=== PATIENT | female | born 1945 | race Caucasian/White ===

== ENCOUNTER 2016-09-05 12:04 | Emergency (ER) | payer OTHER, BC ==
[2016-09-05 12:08] VITALS: BP 143/71; PULSE 81; TEMP 98.6; BMI 22.2
[2016-09-05] MEDS ORDERED: IBUPROFEN 600 MG TABLET (FP) PO ONE ×2 (13:06→13:11)
--- NOTE | 2016-09-05 13:19 | PDOC ---
History of Present Illness - General Chief Complaint: Injury Stated Complaint: PAIN Time Seen by Provider: 09/05/16 12:40 History Source: Patient Exam Limitations: No Limitations - History of Present Illness Initial Comments: 09/05/16 13:07 70-year-old female presents to the emergency room with complaints of status post mechanical fall. Patient states has walked was walking in the hallway of her building that had just been mopped when she had slipped causing her to land on her left side. Patient states had no LOC and did not hit her head along with no initial pain. Patient states by the morning and later on that day symptoms have worsened causing her difficulty with movement of her left arm and pain with ambulation. Patient denied headache, dizziness, nausea, abdominal pain, weakness, or swelling to the affected areas. Patient states did not take any pain for discomfort and decided come to the ER. Patient states had a tetanus approximately 1 month ago secondary to injury. Occurred: reports: other (2 days ago) Severity: reports: mild Pain Location: reports: back Modifying Factors: improves with: None Loss of Consciousness: no loss of consciousness Associated Symptoms (Fall): denies symptoms Past History - Travel Traveled outside of the country in the last 30 days: No Close contact w/someone who was outside of country & ill: No - Past Medical History Allergies/Adverse Reactions: Allergies Allergy/AdvReac Type Severity Reaction Status Date / Time No Known Allergies Allergy Verified 09/05/16 12:05 Home Medications: Ambulatory Orders Hydrochlorothiazide [Hctz -] 25 mg PO DAILY 10/18/15 Lisinopril [Prinivil] 20 mg PO DAILY 10/18/15 Rosuvastatin Calcium [Crestor] 5 mg PO HS 10/18/15 Diabetes: Yes (borderline) HTN: Yes Hypercholesterolemia: Yes - Psycho/Social/Smoking Cessation Hx Anxiety: No Suicidal Ideation: No Smoking History: Never smoked Have you smoked in the past 12 months: No Information on smoking cessation initiated: No Hx Alcohol Use: No Drug/Substance Use Hx: No Substance Use Type: None Patient Lives Alone: No Review of Systems - Review of Systems Able to Perform ROS?: Yes Constitutional: No: Symptoms Reported HEENTM: No: Symptoms Reported Respiratory: No: Symptoms reported Cardiac (ROS): No: Symptoms Reported ABD/GI: No: Symptoms Reported : No: Symptoms Reported Musculoskeletal: Yes: Joint Pain (left shoulder and and left hip). No: Joint Swelling, Muscle Pain, Muscle Weakness, Joint Stiffness Integumentary: No: Symptoms Reported Neurological: No: Symptoms reported Hematologic/Lymphatic: No: Symptoms Reported *Physical Exam - Vital Signs Last Vital Signs Temp Pulse Resp BP Pulse Ox 98.6 F 81 18 143/71 100 09/05/16 12:05 09/05/16 12:05 09/05/16 12:05 09/05/16 12:05 09/05/16 12:05 - Physical Exam General Appearance: Yes: Nourished, Appropriately Dressed. No: Apparent Distress Neck: positive: Tender, Supple. negative: Decreased range of motion Respiratory/Chest: positive: Lungs Clear, Normal Breath Sounds. negative: Chest Tender, Respiratory Distress Cardiovascular: positive: Regular Rhythm, Regular Rate. negative: Murmur Gastrointestinal/Abdominal: positive: Soft. negative: Tenderness Integumentary: positive: Normal Color, Warm, Moist Neurologic: positive: Motor Strength 5/5 (left shoulder shrug, straight leg raise of the LLE. able to perform left knee to chest manuever) ED Treatment Course - RADIOLOGY Radiology Studies Ordered: Category Date Time Status PELVIS [RAD] Stat Radiology 09/05/16 13:06 Ordered SHOULDER-LEFT [RAD] Stat Radiology 09/05/16 13:06 Ordered Medical Decision Making - Medical Decision Making 09/05/16 13:27 Patient status post mechanical fall complaining of left shoulder, left elbow and left hip pain. Patient on exam had tenderness to the left shoulder generally without point tenderness. Patient also with mild tenderness to the lateral aspect of the iliac crest. Patient ordered for pelvic x-ray shoulder x- ray and Motrin. 09/05/16 14:01 X-ray of the shoulder shows no acute findings including fracture or subluxation. The joint, scapula upper ribs and upper humerus appear intact. Degenerative changes are seen in the spine and the left humeral head. Hip x-ray shows no acute bone pathology. Patient be discharged home with supportive care including Motrin and Tylenol and heat Application. *DC/Admit/Observation/Transfer Diagnosis at time of Disposition: Contusion Qualifiers: Encounter type: initial encounter Contusion area: hip Laterality: left Qualified Code(s): S70.02XA - Contusion of left hip, initial encounter - Discharge Dispostion Disposition: HOME Condition at time of disposition: Good - Referrals Referrals: Lokesh Otoole MD [Primary Care Provider] - Patrice Johns MD [Staff Physician] - - Patient Instructions Printed Discharge Instructions: DI for Contusion Additional Instructions: Please take Motrin and Tylenol as discussed in apply heat to the affected areas to alleviate discomfort. Avoid movements that triggered discomfort. If pain persists greater than 1 week or worsens please follow up with referred orthopedist
== END 2016-09-05 14:07 | disposition home or self-care (01) ==
LOC: JERFT 12:04
DX: S70.02XA Contusion of left hip, initial encounter (principal); W01.0XXA Fall on same level from slipping, tripping and stumbling without subsequent striking against object, initial encounter; Y93.01 Activity, walking, marching and hiking; Y92.038 Other place in apartment as the place of occurrence of the external cause
CPT/HCPCS: 72170-TC; 73030-TC-LT; 99281-25

== ENCOUNTER 2018-03-15 07:31 | Day surgery (SDC) | payer OTHER, BC ==
[2018-03-08 14:15] VITALS: BMI 22.2
[2018-03-15] MEDS ORDERED: DEXAMETHASONE SOD PHOSPHATE 4 MG/1 ML VIAL ONE (09:23)
[2018-03-15] MEDS ORDERED: LIDOCAINE HCL/PF 2% SDV 5ML VIAL ONE (09:23)
[2018-03-15] MEDS ORDERED: ONDANSETRON 4 MG/2 ML VIAL ONE ×2 (09:23→11:02)
[2018-03-15] MEDS ORDERED: MIDAZOLAM HCL 2 MG/2 ML SINGLE DOSE VIAL ONE ×2 (09:23→09:26)
[2018-03-15] MEDS ORDERED: ceFAZolin SODIUM 1 GM VIAL ONE (09:42)
[2018-03-15] MEDS ORDERED: ePHEDrine SULFATE 50 MG/1 ML AMPULE ONE (10:27)
[2018-03-15] MEDS ORDERED: ONDANSETRON 4 MG/2 ML VIAL IVPUSH ONE (11:03)
[2018-03-15] MEDS ORDERED: oxyCODONE HCL 5 MG TABLET PO PRN (11:07)
[2018-03-15] MEDS ORDERED: ONDANSETRON 4 MG/2 ML VIAL IVPUSH PRN (11:07)
[2018-03-15] MEDS ORDERED: LACTATED RINGERS SOLUTION 1,000 ML IV SCH (11:15)
[2018-03-15 11:21] VITALS: TEMP 98.4
[2018-03-15] MEDS ORDERED: FAMOTIDINE 20 MG/50 ML IVPB 20 MG/50 ML MG IVPB ONE ×2 (11:34→15:00)
[2018-03-15] MEDS ORDERED: FAMOTIDINE 20 MG PREMIXED IVPB IVPB ONE (11:35)
[2018-03-15 12:43] VITALS: BP 150/88
[2018-03-15 12:44] VITALS: PULSE 87
--- NOTE | 2018-03-16 10:15 | OP ---
DATE OF OPERATION: 03/15/2018 PREOPERATIVE DIAGNOSIS: Status post open reduction, internal fixation, right distal radius with flexor tenosynovitis and potential impending rupture of flexor tendons. POSTOPERATIVE DIAGNOSIS: Status post open reduction, internal fixation, right distal radius with flexor tenosynovitis and potential impending rupture of flexor tendons. OPERATIVE PROCEDURE: Right wrist removal of prosthesis and debridement of flexor tendon sheath. SURGEON: Jamison Ho MD BOXING TRAINER: LI Harris INDICATION FOR PROCEDURE: The patient is a 72-year-old female with the above finding indicated for operative treatment. Risks, benefits, alternatives were discussed with the patient at length. Proper informed consent was obtained. DESCRIPTION OF PROCEDURE: After preoperative identification of patient and correct operative site, patient brought to the operating room, placed supine on the table with all prominences well padded. Anesthesia was provided by the anesthesiologist and adequate for procedure. The right upper extremity was prepped and draped in sterile fashion. A well-padded tourniquet was placed over the sterile prep. Esmarch bandage used to exsanguinate the right upper extremity. Tourniquet inflated to mmHg. Longitudinal incision was made over the distal radius in line with the prior incision. Incision was taken sharply through the skin with blunt and sharp dissection through subcutaneous tissues. Flexor pollicis longus was found to have mild fraying and was debrided. The bulk of the tendon was intact. Mild flexor tenosynovitis was noted, and this was debrided. The plate was identified and freed of soft tissue. All screws were removed atraumatically and the plate was removed. The volar surface of the distal radius was smoothed with a rasp so there were no sharp edges. Wound was irrigated with copious amounts of normal saline, repaired in layers using 4-0 Vicryl and 4-0 Monocryl. Sterile dressings were applied. Splint was placed. Patient was reversed from anesthesia and brought to recovery room in stable condition. Nico Desouza, the clothing sales assistant, was integral throughout the procedure. Procedure could not have been performed without skilled operative clothing sales assistant. JAMISON HO M.D. [id number]
--- NOTE | 2018-03-17 15:36 | PATH ---
Surgical Pathology Report Patient Name: MIKE SOLER Med. Rec. #: [id number] /Age/Gender: 1945 (Age: 72) / F Account: [id number] Location: [facility] AMBUL[facility] Taken: 03/15/2018 Received: 03/15/2018 Reported: 03/17/2018 Physicians: Chalo Villela M.D. Specimen(s) Received RIGHT WRIST HARDWARE Clinical History Right wrist prosthesis Final Diagnosis RIGHT WRIST HARDWARE, REMOVAL: CLIENT ACCOUNT ASSISTANT, CONSISTENT WITH HARDWARE. GROSS EXAMINATION ONLY. Electronically Signed Lyly Ortiz M.D. Gross Description Received in formalin labeled "right wrist hardware," is a 5.0 x 2.1 x 0.2 cm gomez metallic plate. Also received within the same container are 6 gomez metallic screws ranging from 1.4-2.0 cm in length. No soft tissue is present. No sections are submitted, gross only. 03/16/2018 [place]03/16/2018
== END 2018-03-15 12:45 | disposition home or self-care (01) ==
LOC: FASU 07:31
PROVIDERS: ATTEND Orthopaedic Surgery Hand Surgery
PROC: 0LB50ZZ Excision of Right Lower Arm and Wrist Tendon, Open Approach (ICD-10-PCS; 2018-03-15)
PROC: 0RPN0JZ Removal of Synthetic Substitute from Right Wrist Joint, Open Approach (ICD-10-PCS; principal; 2018-03-15 09:00)
DX: M65.831 Other synovitis and tenosynovitis, right forearm (principal)
CPT/HCPCS: 73110-TC-RT-FY; 88300-TC; 94760

== ENCOUNTER 2019-09-26 20:58 | Emergency (ER) | payer OTHER, BC ==
[2019-09-26 21:06] VITALS: BMI 21.9
[2019-09-26] MEDS ORDERED: ONDANSETRON 4 MG/2 ML VIAL IVPUSH ONE (21:14)
[2019-09-26] MEDS ORDERED: SODIUM CHLORIDE 1,000 ML IV SCH (21:15)
[2019-09-26] MEDS ORDERED: ONDANSETRON 4 MG/2 ML VIAL ONE (21:23)
[2019-09-26 21:46] LABS: BASO % 0.4 % (0-2.0); EOS % 0.3 % (0-4.5); HEMATOCRIT 35.7 % (32.4-45.2); HEMOGLOBIN 12.3 GM/dl (10.7-15.3); LYMPH % 16.1 % (8-40); MCH 29.1 pg (25.7-33.7); MCHC 34.4 g/dl (32.0-36.0); MEAN CELL VOLUME 84.6 fl (80-96); MEAN PLT VOLUME 8.2 fl (7.5-11.1); MONO % 3.4 % (3.8-10.2); NEUT % 79.8 % (42.8-82.8); PLATELET COUNT 350 K/MM3 (134-434); RBC 4.22 M/mm3 (3.60-5.2); RDW 12.9 % (11.6-15.6); WHITE BLOOD COUNT 9.1 K/mm3 (4.0-10.8)
--- NOTE | 2019-09-26 21:50 | PDOC ---
Documentation entered by Cara James SCRIBE, acting as scribe for Pebbles Guerrero MD. Pebbles Guerrero MD: This documentation has been prepared by the reymundoibeJacob Ana, SCRIBE, under my direction and personally reviewed by me in its entirety. I confirm that the documentation accurately reflects all work, treatment, procedures, and medical decision making performed by me. History of Present Illness - General Chief Complaint: Diarrhea Stated Complaint: "I have diarrhea and nausea" Time Seen by Provider: 09/26/19 21:00 History Source: Patient Exam Limitations: No Limitations - History of Present Illness Initial Comments: 09/26/19 21:08 Patient is a 73 year old female with a significant past medical history of HTN, HLD and borderline diabetes, who presents to the ED with nausea/vomiting, dehydration, and diarrhea since 12:00pm this afternoon. Patient stated that she was feeling restless last night and woke up late this morning feeling sick. P atient said he has been having "terrible nausea", multiple episodes of NBNB vomiting, "cannot keep anything down", started off having "soft stools" which then turned into NBNB liquid diarrhea. Patient stated she called her PCP who prescribed her Zofran which did not improve her symptoms at all. Patient is requesting IV fluids to get rid of nausea. Patient disclosed that she did not take her prescribed blood pressure medication tod Patient denies: fever (said to have been taking temperature all day), chills,chest pain, SOB, fatigue, recent travel, smoking, drug use, alcohol abuse. Allergies: NKDA PCP: Dr. Lokesh Otoole Past History - Medical History Allergies/Adverse Reactions: Allergies Allergy/AdvReac Type Severity Reaction Status Date / Time No Known Allergies Allergy Verified 09/27/19 00:35 Home Medications: Ambulatory Orders Lisinopril [Prinivil] 20 mg PO HS 10/18/15 Rosuvastatin Calcium [Crestor] 5 mg PO HS 10/18/15 Prochlorperazine Maleate [Compazine -] 5 mg PO TID #10 tablet 09/27/19 Anemia: No Asthma: No Cancer: No Cardiac Disorders: No CVA: No COPD: No CHF: No Dementia: No Diabetes: No GI Disorders: Yes (GERD) Disorders: No HTN: Yes Hypercholesterolemia: Yes Liver Disease: No Seizures: No Thyroid Disease: No - Surgical History Abdominal Surgery: No Appendectomy: No Cardiac Surgery: No Cholecystectomy: No Lung Surgery: No Neurologic Surgery: No Orthopedic Surgery: Yes (RIGHT WRIST 2014) - Immunization History Immunization Up to Date: Yes - Psycho-Social/Smoking History Smoking History: Never smoked Have you smoked in the past 12 months: No - Substance Abuse Hx (Audit-C & DAST Scrn) How often the patient has a drink containing alcohol: Never Score: In Men: 4 or > Positive; In Women: 3 or > Positive: 0 Screen Result (Pos requires Nsg. Audit-10AR): Negative In the last yr the pt used illegal drug/Rx for NonMed reason: No Score: Yes response is considered Positive: 0 Screen Result (Positive result requires Nsg. DAST-10): Negative Review of Systems - Review of Systems Able to Perform ROS?: Yes Comments:: 09/26/19 21:19 CONSTITUTIONAL: Absent: fever, chills, diaphoresis, generalized weakness, malaise. HEENT: Absent: rhinorrhea, nasal congestion, throat pain, throat swelling, difficulty s wallowing, mouth swelling, ear pain, eye pain, visual Changes CARDIOVASCULAR: Absent: chest pain, syncope, palpitations, irregular heart rate, lightheadedness, peripheral edema RESPIRATORY: Absent: cough, shortness of breath, dyspnea with exertion, orthopnea, wheezing, stridor, hemoptysis GASTROINTESTINAL: +Abdominal pain. +Nausea, vomiting, diarrhea Absent: abdominal distension, constipation, melena, hematochezia GENITOURINARY: Absent: dysuria, frequency, urgency, hesitancy, hematuria, flank pain, genital pain MUSCULOSKELETAL: Absent: myalgia, arthralgia, joint swelling SKIN: Absent: rash, itching, pallor HEMATOLOGIC/IMMUNOLOGIC: Absent: easy bleeding, easy bruising, lymphadenopathy, frequent infections ENDOCRINE: Absent: unexplained weight gain, unexplained weight loss, heat intolerance, cold intolerance NEUROLOGIC: Absent: headache, focal weakness or paresthesias, dizziness, unsteady gait, seizure, mental status changes, bladder or bowel incontinence PSYCHIATRIC: Absent: anxiety, depression, suicidal or homicidal ideation, hallucinations. *Physical Exam - Vital Signs Last Vital Signs Temp Pulse Resp BP Pulse Ox 94 H 18 198/113 H 99 09/26/19 21:01 09/26/19 21:01 09/26/19 21:01 09/26/19 21:01 - Physical Exam 09/26/19 21:20 GENERAL: Well developed, well nourished. Awake and alert. No acute distress. HEENT: +Dry mucous membranes Normocephalic, atraumatic. PERRLA, EOMI. No conjunctival pallor. Sclera are non- icteric. Oropharynx is clear. NECK: Supple. Full ROM. No JVD. Carotid pulses 2+ and symmetric, without bruits. No thyromegaly. No lymphadenopathy. CARDIOVASCULAR: Regular rate and rhythm. No murmurs, rubs, or gallops. Distal pulses are 2+ and symmetric. PULMONARY: No evidence of respiratory distress. Lungs clear to auscultation bilaterally. No wheezing, rales or rhonchi. ABDOMINAL: Soft. Non-tender. Non-distended. No rebound or guarding. No organomegaly. Normoactive bowel sounds. MUSCULOSKELETAL: Normal range of motion at all joints. No bony deformities or tenderness. No CVA tenderness. EXTREMITIES: No cyanosis. No clubbing. No edema. No calf tenderness. SKIN: Warm and dry. Normal capillary refill. No rashes. No jaundice. NEUROLOGICAL: Alert, awake, appropriate. Cranial nerves 2-12 intact. No deficits to light touch and temperature in face, upper extremities and lower extremities. No motor deficits in the in face, upper extremities and lower extremities. Normoreflexic in the upper and lower extremities. Normal speech. Toes are down-going bilaterally. Gait is normal without ataxia. PSYCHIATRIC: Cooperative. Good eye contact. Appropriate mood and affect. ED Treatment Course - LABORATORY CBC & Chemistry Diagram: 09/26/19 21:43 09/26/19 21:22 Medical Decision Making - Medical Decision Making As noted above, this 73 y.o woman with HTN,HLD, prediabetes presents with one day hx of nausea, vomiting and diarrhea. The patient noted abdominal"soreness" from the multiple episodes of vomiting but no abdominal pain. No fever noted. Exam as noted with soft, nondistended , nontender abdomen. IV access obtained, CBC/chemistry profile sent and patient received normal saline at 250ml/hr. Zofran 4 mg IV given for nausea. Patient noted no relief of nausea with Zofran; she thought she may have felt some agitation from the medication. Since patient is taking Effexor, she may be having symptoms consistent with mild serotonin syndrome (since she had similar symptoms after taking Zofran ODT at home). Reglan 10 mg IVPB given for persistent nausea. CBC and chemistry profile are essentially normal. Patient reports continuation of nausea after Reglan. Twelve-lead electrocardiogram is performed: Normal sinus rhythm 95 bpm axis, intervals and waveforms are essentially normal and unchanged from tracing dated 11/14/2015. No evidence of acute ST or T wave abnormalities. No evidence of acute cardiac arrhythmia Patient continues to deny any chest pain, shortness of breath or palpitations 10 mg of prochlorperazine IVPB given: Patient states that she has some decrease in nausea. Patient was able to take her evening doses of lisinopril and Effexor with a small amount of water. Repeat blood pressure measurements show decrease in BP to 190/100 Patient had no further vomiting or loose stool during the time she was in the emergency room. Although she had no increase in abdominal pain, possibility that she might have early pancreatitis was discussed with the patient. Additional evaluation (lipase levels/possible CT imaging) to rule this out was discussed with the patient. Since she felt somewhat better, the patient much preferred to be discharged with plan to return to ER if she had worsening of the nausea or development of pain/fever. Also, she plans on contacting her PMD in the a.m. Discharge - Discharge Information Problems reviewed: Yes Clinical Impression/Diagnosis: Gastroenteritis Condition: Stable Disposition: HOME - Additional Discharge Information Prescriptions: Prochlorperazine Maleate [Compazine -] 5 mg PO TID #10 tablet - Follow up/Referral Referrals: ON STAFF,NOT [Primary Care Provider] - - Patient Discharge Instructions Patient Printed Discharge Instructions: DI for Nausea -- Adult Additional Instructions: Clear liquids, advance diet cautiously Compazine 5 mg by mouth up to 3 times a day as needed for nausea Return to ER if you have severe nausea/vomiting or develop abdominal pain/fever Call your doctor in the morning and arrange follow-up as discussed - Post Discharge Activity
[2019-09-26] MEDS ORDERED: METOCLOPRAMIDE HCL INJECTION 10 MG/2 ML VIAL IVPB ONE (22:01)
[2019-09-26] MEDS ORDERED: METOCLOPRAMIDE HCL INJECTION 10 MG/2 ML VIAL ONE (22:02)
[2019-09-26 22:03] LABS: ALBUMIN 4.3 g/dl (3.4-5.0); BILIRUBIN,TOTAL 0.6 mg/dl (0.2-1); CALCIUM 9.7 mg/dl (8.5-10); CREATININE 0.6 mg/dl (0.55-1.3); POTASSIUM 3.6 mmol/L (3.5-5.1); TOT PROT 7.2 g/dl (6.4-8.2)
[2019-09-26] MEDS ORDERED: PROCHLORPERAZINE INJECTION 10 MG/2 ML VIAL IVPB ONE (23:02)
[2019-09-26 23:03] VITALS: PULSE 96
[2019-09-27 00:48] VITALS: BP 190/100
--- NOTE | 2019-09-27 11:59 | EKG ---
Test Reason : Blood Pressure : / mmHG Vent. Rate : 095 BPM Atrial Rate : 095 BPM P-R Int : 166 ms QRS Dur : 094 ms QT Int : 358 ms P-R-T Axes : 063 040 048 degrees QTc Int : 449 ms NORMAL SINUS RHYTHM SEPTAL INFARCT , AGE UNDETERMINED ABNORMAL ECG WHEN COMPARED WITH ECG OF 12-JUN-2006 12:06, T WAVE AMPLITUDE HAS INCREASED IN ANTERIOR LEADS Confirmed by FAUSTO SEO, TAMIA (2014) on 09/27/2019 11:59:25 AM Referred By: ABHIJIT BRAN Confirmed By:TAMIA LAMBERT MD
== END 2019-09-27 01:31 | disposition home or self-care (01) ==
LOC: SUPCPDRO 20:58 → FER 20:58
PROC: 3E033GC Introduction of Other Therapeutic Substance into Peripheral Vein, Percutaneous Approach (ICD-10-PCS; principal; 2019-09-26)
DX: K52.9 Noninfective gastroenteritis and colitis, unspecified (principal)
CPT/HCPCS: 36415; 80053; 85025; 93005; 99284-25

== ENCOUNTER 2022-08-30 17:45 | Emergency (ER) | payer OTHER, BC ==
[2022-08-30 17:54] VITALS: BP 128/64; PULSE 79; RESP 18; TEMP 98; BMI 22.7
[2022-08-30] MEDS ORDERED: DOXYCYCLINE HYCLATE 100 MG CAPSULE PO ONE ×2 (18:01→18:18)
== END 2022-08-30 18:55 | disposition home or self-care (01) ==
LOC: FER 17:45
DX: S30.861A Insect bite (nonvenomous) of abdominal wall, initial encounter (principal); W57.XXXA Bitten or stung by nonvenomous insect and other nonvenomous arthropods, initial encounter
CPT/HCPCS: 99283-25